=== PATIENT | male | born 1955 | race Caucasian/White ===

== ENCOUNTER 2017-09-18 10:43 | Inpatient (IN) | payer BC, SELFPAY ==
[2017-09-18 11:34] VITALS: BP 139/71; PULSE 67; RESP 16; TEMP 36.7; O2SAT 95; BMI 42.3
--- NOTE | 2017-09-18 11:40 | HMH.PHAVTE ---
[facility] Pharm[facility] VTE Monitoring - Patient Demographics Admission date: 09/18/17 Report Date: 09/18/17 Time: 11:40 Allergies/Adverse Reactions: Patient Allergies INGREDIENT: NO KNOWN - NO KNOWN DRUG ALLERGY Allergy (Unknown, Uncoded 07/21/17 14:32) Height: 1.85 m Weight: 145.32 kg - Prophylaxis VTE Prophylaxis Ordered?: Yes Types of VTE Prophylaxis: TEDS Knee High Location of Applied Device: Bilateral Lower Extremeties - VTE Diagnosis Confirmed Treatment or plan recommended: Continue Current Treatment
[2017-09-18 11:52] LABS: Basophils # 0.1 K/mm3 (0-0.2); Basophils % 0.3 % (0.1-2.0); Eosinophils % 0.3 % (0.1-12.0); Hematocrit 45.6 % (42.0-52.0); Hemoglobin 15.5 g/dL (14.1-18.0); Lymphocytes # 1.2 K/mm3 (0.7-4.5); Lymphocytes % 7.7 K/mm3 (10-50); Mean Corpuscular HGB Conc 33.9 g/dL (31.8-35.4); Mean Corpuscular Hemoglobin 29.1 pg (27.0-31.2); Mean Corpuscular Volume 85.9 fl (80-94); Mean Platelet Volume 7.8 fl (7.4-10.4); Monocytes # 0.7 K/mm3 (0.1-1.0); Monocytes % 4.8 % (1.7-9.3); Neutrophils # 13.1 K/mm3 (1.8-7.8); Neutrophils % 86.9 % (37.0-80.0); Platelet Count 205 K/mm3 (142-424); Red Blood Count 5.31 M/mm3 (4.60-6.20); Red Cell Distribution Width 13.5 % (11.5-17.5); White Blood Count 15.1 K/mm3 (4.8-10.8)
[2017-09-18 11:59] LABS: Alanine Aminotransferase 37 U/L (12-78); Albumin Level 3.7 gm/dL (3.4-5.0); Albumin/Globulin Ratio 1.1 (1.1-1.8); Alkaline Phosphatase 51 U/L (46-116); Anion Gap 12.4 mEq/L (5-15); Aspartate Amino Transferase 16 U/L (15-37); Bilirubin,Total 0.5 mg/dL (0.2-1.0); Blood Urea Nitrogen 27 mg/dL (7-18); Carbon Dioxide 29 mmol/L (21.0-32.0); Chloride 104 mmol/L (98-107); Creatinine Clearance Estimated 54 mL/min (0-300); Creatinine,Serum 1.63 mg/dL (0.70-1.30); Estimated Glomerular Filt Rate 43 ml/min (>60); GFR (African American) 52 ML/MIN (>60); Globulin 3.5 gm/dl (1.3-3.2); Glucose 154 mg/dL (74-106); Potassium 4.4 mmoL/L (3.5-5.1); Sodium 141 mmol/L (136-145); Total Protein,Serum 7.2 gm/dL (6.4-8.2)
[2017-09-18 12:00] LABS: MANUAL DIFFERENTIAL MANUAL DIFFERENTIAL (MANUAL DIFF)
--- NOTE | 2017-09-18 12:51 | HMH.HP ---
*Admission Date: 09/18/17 <Roxanne Hines 09/18/17 13:04> *Chief complaint: left flank pain <Roxanne Hines 09/18/17 13:04> *History of present illness: Mr. Cha is a 61yo male who was just recently treated for prostatitis and a UTI with cipro. He states he was doing better and last night around 4am, he began having severe left sided flank pain. He has been unable to get comfortably and has been on a heating pad. He presented to the office and had blood in his urine and a WBC of 16,000. A CT revealed a 4mm obstructing kidney stone. He was admitted for pain control, IVF's, and IV abx. <Roxanne Hines 09/18/17 13:04> [facility] History Medical History: Reports:: Diabetes Mellitus Type 2, Gastroesophageal Reflux Disease(GERD), Hypertension Denies:: Cancer, Diabetes Mellitus Type 1, MRSA <Roxanne Hines 09/18/17 13:04> Other Medical History: Reports: Arthritis <Roxanne Hines 09/18/17 13:04> Comment: Gout <Roxanne Hines 09/18/17 13:04> Other Surgeries: Yes: Appendectomy, Colonoscopy <Roxanne Hines 09/18/17 13:04> Amputation: No <Roxanne Hines 09/18/17 13:04> Fractures: No <Roxanne Hines 09/18/17 13:04> - *Social History Educational Level: Completed College <Roxanne Hines 09/18/17 13:04> Smoking Status: Never smoker <Roxanne Hines 09/18/17 13:04> Alcohol Intake: never <Roxanne Hines 09/18/17 13:04> Occupational Status: employed <Roxanne Hines 09/18/17 13:04> Housing: house <Roxanne Hines 09/18/17 13:04> - Psychiatric History Expresses thoughts of harming self/others: None <Roxanne Hines 09/18/17 13:04> Suicide Plan Description: No Plan <Roxanne Hines 09/18/17 13:04> *Family Hx:: Diabetes, Kidney Disease <Roxanne Hines 09/18/17 13:04> Review of Systems - Constitutional Reports fatigue, Reports weakness <Roxanne Hines 09/18/17 13:04> - Eyes Denies blurry vision, Denies double vision <Roxanne Hines 09/18/17 13:04> - ENT Denies nasal congestion, Denies sore throat <Roxanne Hines 09/18/17 13:04> - *Cardiovascular Denies chest pain <Roxanne Hines 09/18/17 13:04> - *Respiratory Denies cough, Denies shortness of breath <Roxanne Hines 09/18/17 13:04> - *Gastrointestinal Reports abdominal pain (LLQ), Reports nausea, Denies vomiting <Roxanne Hines 09/18/17 13:04> - *Genitourinary Reports difficulty urinating, Reports painful urination <Roxanne Hines 09/18/17 13:04> - *Musculoskeletal Reports back pain (left flank), Denies joint pain <Roxanne Hines 09/18/17 13:04> - *Neurologic Denies headache(s), Denies dizziness <Roxanne Hines 09/18/17 13:04> Meds Home Medications Medication Instructions Recorded Confirmed Type Allopurinol [Allopurinol 100mg 100 mg PO DAILY 09/18/17 09/18/17 History tablet] Losartan/Hydrochlorothiazide 1 each PO DAILY 09/18/17 09/18/17 History [Losartan-Hctz 50-12.5 mg Tab] Metformin HCl [Metformin 500mg 2,000 mg PO DAILY 09/18/17 09/18/17 History Tablet] Nabumetone [Nabumetone] 750 mg PO DAILY 09/18/17 09/18/17 History Pantoprazole Sodium [Protonix 40mg 40 mg PO DAILY 09/18/17 09/18/17 History tablet] <Gomez Lorenzana - 09/18/17 13:15> Allergies Allergy/AdvReac Type Severity Reaction Status Date / Time INGREDIENT: NO KNOWN - NO Allergy Unknown Uncoded 07/21/17 14:32 KNOWN DRUG ALLERGY <Gomez Lorenzana - 09/18/17 13:15> Exam Vital signs and Labs for Last 24 Hours: Temp Pulse Resp BP Pulse Ox 98.0 F 67 16 139/71 95 09/18/17 11:34 09/18/17 11:34 09/18/17 11:34 09/18/17 11:34 09/18/17 11:34 Laboratory Results - last 24 hr 09/18/17 11:40: WBC 15.1 H, RBC 5.31, Hgb 15.5, Hct 45.6, MCV 85.9, MCH 29.1, MCHC 33.9, RDW 13.5, Plt Count 205, MPV 7.8, Neut % (Auto) 86.9 H, Lymph % (Auto) 7.7 L, [place] % (Auto) 4.8, Eos % (Auto) 0.3, Baso % (Auto) 0.3, Neut # (Auto) 13.1 H, Lymph # (Auto) 1.2, [place] # (Auto) 0.7, Eos # (Auto) 0.0, Baso # (Auto) 0.1, Total Counted
--- NOTE | 2017-09-18 12:55 | P.HP_ITS ---
*Admission Date: 09/18/17 <Roxanne Hines 09/18/17 13:04> *Chief complaint: left flank pain <Roxanne Hines 09/18/17 13:04> *History of present illness: Mr. Cha is a 61yo male who was just recently treated for prostatitis and a UTI with cipro. He states he was doing better and last night around 4am, he began having severe left sided flank pain. He has been unable to get comfortably and has been on a heating pad. He presented to the office and had blood in his urine and a WBC of 16,000. A CT revealed a 4mm obstructing kidney stone. He was admitted for pain control, IVF's, and IV abx. <Roxanne Hines 09/18/17 13:04> [facility] History Medical History: Reports:: Diabetes Mellitus Type 2, Gastroesophageal Reflux Disease(GERD), Hypertension Denies:: Cancer, Diabetes Mellitus Type 1, MRSA <Roxanne Hines 09/18/17 13:04> Other Medical History: Reports: Arthritis <Roxanne Hines 09/18/17 13:04> Comment: Gout <Roxanne Hines 09/18/17 13:04> Other Surgeries: Yes: Appendectomy, Colonoscopy <Roxanne Hines 09/18/17 13: 04> Amputation: No <Roxanne Hines 09/18/17 13:04> Fractures: No <Roxanne Hines 09/18/17 13:04> - *Social History Educational Level: Completed College <Roxanne Hines 09/18/17 13:04> Smoking Status: Never smoker <Roxanne Hines 09/18/17 13:04> Alcohol Intake: never <Roxanne Hines 09/18/17 13:04> Occupational Status: employed <Roxanne Hines 09/18/17 13:04> Housing: house <Roxanne Hines 09/18/17 13:04> - Psychiatric History Expresses thoughts of harming self/others: None <Roxanne Hines 09/18/17 13: 04> Suicide Plan Description: No Plan <Roxanne Hines 09/18/17 13:04> *Family Hx:: Diabetes, Kidney Disease <Roxanne Hines 09/18/17 13:04> Review of Systems - Constitutional Reports fatigue, Reports weakness <Roxanne Hines 09/18/17 13:04> - Eyes Denies blurry vision, Denies double vision <Roxanne Hines 09/18/17 13:04> - ENT Denies nasal congestion, Denies sore throat <Roxanne Hines 09/18/17 13:04> - *Cardiovascular Denies chest pain <Roxanne Hines 09/18/17 13:04> - *Respiratory Denies cough, Denies shortness of breath <Roxanne Hines 09/18/17 13:04> - *Gastrointestinal Reports abdominal pain (LLQ), Reports nausea, Denies vomiting <Roxanne Hines 09/18/17 13:04> - *Genitourinary Reports difficulty urinating, Reports painful urination <Roxanne Hines 09/18 13:04> - *Musculoskeletal Reports back pain (left flank), Denies joint pain <Roxanne Hines 09/18/17 13 :04> - *Neurologic Denies headache(s), Denies dizziness <Roxanne Hines 09/18/17 13:04> Meds Home Medications Medication Instructions Recorded Confirmed Type Allopurinol [Allopurinol 100mg 100 mg PO DAILY 09/18/17 09/18/17 History tablet] Losartan/Hydrochlorothiazide 1 each PO DAILY 09/18/17 09/18/17 History [Losartan-Hctz 50-12.5 mg Tab] Metformin HCl [Metformin 500mg 2,000 mg PO DAILY 09/18/17 09/18/17 History Tablet] Nabumetone [Nabumetone] 750 mg PO DAILY 09/18/17 09/18/17 History Pantoprazole Sodium [Protonix 40mg 40 mg PO DAILY 09/18/17 09/18/17 History tablet] <Gomez Lorenzana - 09/18/17 13:15> Allergies Allergy/AdvReac Type Severity Reaction Status Date / Time INGREDIENT: NO KNOWN - NO Allergy Unknown Uncoded 07/21/17 14:32 KNOWN DRUG ALLERGY <Gomez Lorenzana - 09/18/17 13:15> Exam Vital signs and Labs for Last 24 Hours:
[2017-09-18 12:57] LABS: Lymphocytes % 4 % (10-50); Monocytes % 2 % (2-9); Neutrophils % 94 % (42-76); Platelet Estimate Normal; RBC Morphology Normal; Total Cells Counted 100
[2017-09-18 15:06] VITALS: RESP 18
[2017-09-18 16:00] VITALS: BP 136/71; PULSE 78; RESP 16; TEMP 37; O2SAT 95
--- NOTE | 2017-09-18 18:27 | PC.NURSE ---
UA WAS COLLECTED AND SENT TO LAB, PATIENT HAS VOIDED TWICE AND STRAINED AND NOTHING IN THE STRAINER.
--- NOTE | 2017-09-18 18:43 | PC.NURSE ---
PATIENT HAS BEEN ADMITTED WITH KIDNEY STONES TODAY, HE HAS VOIDED TWICE AND STRAINED AND NO STONES WERE NOTED. UA WAS COLLECTED AND SENT TO LAB. IVF'S INFUSING AT 150ML/HR . PATIENT HAS HAD ONE DOSE OF ROCHEPHIN 1GM AND 2 DOSES OF MORPHINE FOR PAIN AND PAIN IS TOLERABLE AND UNDER CONTROL AT THIS TIME.
[2017-09-18 19:30] VITALS: BP 118/64; PULSE 88; RESP 16; TEMP 36.9; O2SAT 94
[2017-09-18 19:55] VITALS: O2SAT 94
[2017-09-19 04:00] VITALS: BP 121/70; PULSE 77; RESP 18; TEMP 36.6; O2SAT 97
--- NOTE | 2017-09-19 04:54 | PC.NURSE ---
no changes noted since previous assessment, pt c/o pain once this shift which was relieved by PRN medication per MAR, pt has rested well this shift, breath sounds clear on auscultation, bowel sounds active, pt denies pain and frequency with urination, vss, no acute distress noted at this time, call light in reach, will continue to monitor.
[2017-09-19 08:00] VITALS: BP 117/63; PULSE 69; RESP 16; TEMP 36.8; O2SAT 96
--- NOTE | 2017-09-19 08:58 | P.PN_ITS ---
Internal Medicine - PN: Subj *Date: 09/19/17 *Time: 08:56 Interval history: Patient with no new complaints, less pain today, receiving Morphine for pain, has not passed a stone yet. Exam Vital signs and Labs for Last 24 Hours: Temp Pulse Resp BP Pulse Ox 98.3 F 69 16 117/63 96 09/19/17 08:00 09/19/17 08:00 09/19/17 08:00 09/19/17 08:00 09/19/17 08:00 Laboratory Results - last 24 hr 09/18/17 11:40: WBC 15.1 H, RBC 5.31, Hgb 15.5, Hct 45.6, MCV 85.9, MCH 29.1, MCHC 33.9, RDW 13.5, Plt Count 205, MPV 7.8, Neut % (Auto) 86.9 H, Lymph % (Auto ) 7.7 L, [place] % (Auto) 4.8, Eos % (Auto) 0.3, Baso % (Auto) 0.3, Neut # (Auto) 13.1 H, Lymph # (Auto) 1.2, [place] # (Auto) 0.7, Eos # (Auto) 0.0, Baso # (Auto) 0.1, Total Counted 100, Neutrophils % (Manual) 94 H, Lymphocytes % (Manual) 4 L , Monocytes % (Manual) 2, Platelet Estimate Normal, RBC Morphology Normal 09/18/17 11:40: Sodium 141, Potassium 4.4, Chloride 104, Carbon Dioxide 29, Anion Gap 12.4, BUN 27 H, Creatinine 1.63 H, Estimated Creat Clear 54, Estimated GFR 43 L, Est GFR ( Amer) 52 L, Glucose 154 H, Calcium 9.0, Total Bilirubin 0.5, AST 16, ALT 37, Alkaline Phosphatase 51, Total Protein 7.2 , Albumin 3.7, Globulin 3.5 H, Albumin/Globulin Ratio 1.1 I & O for Last 24 hours: Intake & Output 09/16/17 09/17/17 09/18/17 09/19/17 11:59 11:59 11:59 11:59 Intake Total 2696 / 2696 Output Total 1900 / 1900 Balance 796 / 796 Weight 320 lb 6 oz - Constitutional no acute distress - *Routine HEENT Exam ENT: Present: mucous membranes moist - *Routine Respiratory Exam Present: CTA bilaterally - *Routine Cardiovascular Exam Present: RRR Assessment and Plan (1) Kidney stone on left side Current visit: Yes Status: Acute Category: Medical Code(s): N20.0 - Calculus of kidney (2) Leukocytosis Current visit: Yes Status: Acute Category: Medical Code(s): D72.829 - Elevated white blood cell count, unspecified (3) Type 2 diabetes mellitus Current visit: Yes Status: Chronic Category: Medical Code(s): E11.9 - Type 2 diabetes mellitus without complications (4) Hypertension Current visit: Yes Status: Chronic Category: Medical Code(s): I10 - Essential (primary) hypertension (5) GERD (gastroesophageal reflux disease) Current visit: Yes Status: Chronic Category: Medical Code(s): K21.9 - Gastro-esophageal reflux disease without esophagitis - Assessment and plan all Dx Assessment and Plan for all problems:: Will add Flomax today, continue to strain urine. Recheck labs tomorrow.
[2017-09-19 16:00] VITALS: BP 113/53; PULSE 76; RESP 18; TEMP 36.6; O2SAT 97
--- NOTE | 2017-09-19 18:37 | PC.NURSE ---
no changes from previous assessment. v/s/s. iv patent. no c/o of pain this shift. urine has been strained with no results. pt ambulates independently. call light in reach. will continue to monitor pt condition.
--- NOTE | 2017-09-19 19:21 | PC.NURSE ---
report given to Blanca medellin rn
[2017-09-19 19:29] VITALS: BP 125/67; PULSE 71; RESP 18; TEMP 36.8; O2SAT 97
[2017-09-19 20:30] VITALS: O2SAT 97
[2017-09-20 03:28] LABS: POC Glucose,Bedside 95 mg/dL (70-110)
[2017-09-20 03:31] LABS: POC Glucose,Bedside 96 mg/dL (70-110)
[2017-09-20 04:00] VITALS: BP 141/68; PULSE 58; RESP 20; TEMP 36.6; O2SAT 96
--- NOTE | 2017-09-20 04:48 | PC.NURSE ---
Pt c/o pain in lower back once this shift, medicated per MAR. Pt having adequete UOP, urine continues to be strained but no stone noted, pt states It feels like I havent passed it yet. Pt uses KPAP to lower back PRN. BS active in all 4 qaud, LBM 09/19/17. Scattered rhonchi noted during lung auscultation. VSS. NO acute distress noted. Will continue to monitor.
[2017-09-20 06:40] LABS: Basophils % 0.4 % (0.1-2.0); Eosinophils # 0.1 K/mm3 (0.0-0.4); Eosinophils % 1.7 % (0.1-12.0); Hematocrit 40.6 % (42.0-52.0); Hemoglobin 13.7 g/dL (14.1-18.0); Lymphocytes # 1.8 K/mm3 (0.7-4.5); Lymphocytes % 25.1 K/mm3 (10-50); Mean Corpuscular HGB Conc 33.7 g/dL (31.8-35.4); Mean Corpuscular Volume 86.1 fl (80-94); Mean Platelet Volume 8.1 fl (7.4-10.4); Monocytes # 0.5 K/mm3 (0.1-1.0); Monocytes % 6.8 % (1.7-9.3); Neutrophils # 4.8 K/mm3 (1.8-7.8); Platelet Count 175 K/mm3 (142-424); Red Blood Count 4.72 M/mm3 (4.60-6.20); Red Cell Distribution Width 13.5 % (11.5-17.5); White Blood Count 7.2 K/mm3 (4.8-10.8)
[2017-09-20 06:46] LABS: Blood Urea Nitrogen 25 mg/dL (7-18); Carbon Dioxide 26 mmol/L (21.0-32.0); Chloride 107 mmol/L (98-107); Creatinine Clearance Estimated 49 mL/min (0-300); Creatinine,Serum 1.78 mg/dL (0.70-1.30); Estimated Glomerular Filt Rate 39 ml/min (>60); GFR (African American) 47 ML/MIN (>60); Glucose 128 mg/dL (74-106); Sodium 139 mmol/L (136-145)
--- NOTE | 2017-09-20 07:09 | PC.NURSE ---
REPORT GIVEN TO Delmar LA RN
--- NOTE | 2017-09-20 07:12 | PC.NURSE ---
REPORT GIVEN TO Delmar NEWTON W/C
[2017-09-20 07:54] VITALS: BP 124/80; PULSE 70; RESP 16; TEMP 36.9; O2SAT 97
--- NOTE | 2017-09-20 08:58 | HMH.ACPN2 ---
Internal Medicine - PN: Subj *Date: 09/20/17 *Time: 08:58 Interval history: Patient feels better today, has not passed a stone yet, wants to go home. Exam Vital signs and Labs for Last 24 Hours: Temp Pulse Resp BP Pulse Ox 98.4 F 70 16 124/80 97 09/20/17 07:54 09/20/17 07:54 09/20/17 07:54 09/20/17 07:54 09/20/17 07:54 Laboratory Results - last 24 hr 09/19/17 11:32: POC Glucose 95 09/19/17 20:06: POC Glucose 96 09/20/17 06:00: WBC 7.2 D, RBC 4.72, Hgb 13.7 L, Hct 40.6 L, MCV 86.1, MCH 29.0, MCHC 33.7, RDW 13.5, Plt Count 175, MPV 8.1, Neut % (Auto) 66.0, Lymph % (Auto) 25.1, [place] % (Auto) 6.8, Eos % (Auto) 1.7, Baso % (Auto) 0.4, Neut # (Auto) 4.8, Lymph # (Auto) 1.8, [place] # (Auto) 0.5, Eos # (Auto) 0.1, Baso # (Auto) 0.0 09/20/17 06:00: Sodium 139, Potassium 4.0, Chloride 107, Carbon Dioxide 26, Anion Gap 10.0, BUN 25 H, Creatinine 1.78 H, Estimated Creat Clear 49, Estimated GFR 39 L, Est GFR ( Amer) 47 L, Glucose 128 H Vital Signs Temp Pulse Resp BP Pulse Ox 09/20/17 07:54 98.4 F 70 16 124/80 97 09/20/17 04:00 97.9 F 58 L 20 141/68 96 09/19/17 20:30 97 09/19/17 19:29 98.2 F 71 18 125/67 97 09/19/17 16:00 97.8 F 76 18 113/53 97 Intake and Output 09/19/17 09/20/17 09/20/17 19:59 03:59 11:59 Intake Total 2742 / 2742 480 / 480 1592 / 1592 Output Total 1250 / 1250 900 / 900 1350 / 1350 Balance 1492 / 1492 -420 / -420 242 / 242 Intake: Intake, Oral Amount 750 / 750 480 / 480 Intake, Total IV Amount 1991 1592 / 1592 0.9 % Sodium Chloride 1,000 ml 1941 / 1941 1592 / 1592 @ 150 mls/hr IV .Q6H40M ALEJANDRA Rx# :[id number] Ceftriaxone Sodium 1 gm In 0.9 50 / 50 % Sodium Chloride 50 ml @ 100 mls/hr IV Q24H ALEJANDRA Rx#:[id number] Output: Output, Urine Amount 1250 / 1250 900 / 900 1350 / 1350 Other: Number of Voids 2 1 Number of Unmeasured Voids 5 I & O for Last 24 hours: Intake & Output 09/17/17 09/18/17 09/19/17 09/20/17 11:59 11:59 11:59 11:59 Intake Total 2696 / 2696 4814 / 4814 Output Total 1900 / 1900 3500 / 3500 Balance 796 / 796 1314 / 1314 Weight 320 lb 6 oz Microbiology Reports for the Last 24 Hours: Microbiology 09/18/17 18:23 Urine,Random Urine Culture - Preliminary NO GROWTH AFTER 24 HOURS - Constitutional no acute distress - *Routine HEENT Exam ENT: Present: mucous membranes moist - *Routine Respiratory Exam Present: CTA bilaterally - *Routine Cardiovascular Exam Present: RRR - Routine Back/Spine/Pelvis Exam Back/Spine: Absent: CVA tenderness Assessment and Plan (1) Kidney stone on left side Current visit: Yes Status: Acute Category: Medical Code(s): N20.0 - Calculus of kidney (2) Leukocytosis Current visit: Yes Status: Acute Category: Medical Code(s): D72.829 - Elevated white blood cell count, unspecified (3) Type 2 diabetes mellitus Current visit: Yes Status: Chronic Category: Medical Code(s): E11.9 - Type 2 diabetes mellitus without complications (4) Hypertension Current visit: Yes Status: Chronic Category: Medical Code(s): I10 - Essential (primary) hypertension (5) GERD (gastroesophageal reflux disease) Current visit: Yes Status: Chronic Category: Medical Code(s): K21.9 - Gastro-esophageal reflux disease without esophagitis - Assessment and plan all Dx Assessment and Plan for all problems:: OK to discharge today, will continue to strain urine and pain medication as needed and antibiotics as it appears patient has a UTI. Patient to follow up by phone in 2 days and in office in 2 weeks.
--- NOTE | 2017-09-20 09:02 | P.PN_ITS ---
Internal Medicine - PN: Subj *Date: 09/20/17 *Time: 08:58 Interval history: Patient feels better today, has not passed a stone yet, wants to go home. Exam Vital signs and Labs for Last 24 Hours: Temp Pulse Resp BP Pulse Ox 98.4 F 70 16 124/80 97 09/20/17 07:54 09/20/17 07:54 09/20/17 07:54 09/20/17 07:54 09/20/17 07:54 Laboratory Results - last 24 hr 09/19/17 11:32: POC Glucose 95 09/19/17 20:06: POC Glucose 96 09/20/17 06:00: WBC 7.2 D, RBC 4.72, Hgb 13.7 L, Hct 40.6 L, MCV 86.1, MCH 29.0 , MCHC 33.7, RDW 13.5, Plt Count 175, MPV 8.1, Neut % (Auto) 66.0, Lymph % (Auto ) 25.1, [place] % (Auto) 6.8, Eos % (Auto) 1.7, Baso % (Auto) 0.4, Neut # (Auto) 4.8, Lymph # (Auto) 1.8, [place] # (Auto) 0.5, Eos # (Auto) 0.1, Baso # (Auto) 0.0 09/20/17 06:00: Sodium 139, Potassium 4.0, Chloride 107, Carbon Dioxide 26, Anion Gap 10.0, BUN 25 H, Creatinine 1.78 H, Estimated Creat Clear 49, Estimated GFR 39 L, Est GFR ( Amer) 47 L, Glucose 128 H Vital Signs Temp Pulse Resp BP Pulse Ox 09/20/17 07:54 98.4 F 70 16 124/80 97 09/20/17 04:00 97.9 F 58 L 20 141/68 96 09/19/17 20:30 97 09/19/17 19:29 98.2 F 71 18 125/67 97 09/19/17 16:00 97.8 F 76 18 113/53 97 Intake and Output 09/19/17 09/20/17 09/20/17 19:59 03:59 11:59 Intake Total 2742 / 2742 480 / 480 1592 / 1592 Output Total 1250 / 1250 900 / 900 1350 / 1350 Balance 1492 / 1492 -420 / -420 242 / 242 Intake: Intake, Oral Amount 750 / 750 480 / 480 Intake, Total IV Amount 1991 1592 / 1592 0.9 % Sodium Chloride 1,000 ml 194 / 1941 1592 / 1592 @ 150 mls/hr IV .Q6H40M ALEJANDRA Rx# :[id number] Ceftriaxone Sodium 1 gm In 0.9 50 / 50 % Sodium Chloride 50 ml @ 100 mls/hr IV Q24H ALEJANDRA Rx#:[id number] Output: Output, Urine Amount 1250 / 1250 900 / 900 1350 / 1350 Other: Number of Voids 2 1 Number of Unmeasured Voids 5 I & O for Last 24 hours: Intake & Output 09/17/17 09/18/17 09/19/17 09/20/17 11:59 11:59 11:59 11:59 Intake Total 2696 / 2696 4814 / 4814 Output Total 1900 / 1900 3500 / 3500 Balance 796 / 796 1314 / 1314 Weight 320 lb 6 oz Microbiology Reports for the Last 24 Hours: Microbiology 09/18/17 18:23 Urine,Random Urine Culture - Preliminary NO GROWTH AFTER 24 HOURS - Constitutional no acute distress - *Routine HEENT Exam ENT: Present: mucous membranes moist - *Routine Respiratory Exam Present: CTA bilaterally - *Routine Cardiovascular Exam Present: RRR - Routine Back/Spine/Pelvis Exam Back/Spine: Absent: CVA tenderness Assessment and Plan (1) Kidney stone on left side Current visit: Yes Status: Acute Category: Medical Code(s): N20.0 - Calculus of kidney (2) Leukocytosis Current visit: Yes Status: Acute Category: Medical Code(s): D72.829 - Elevated white blood cell count, unspecified (3) Type 2 diabetes mellitus Current visit: Yes Status: Chronic Category: Medical Code(s): E11.9 - Type 2 diabetes mellitus without complications (4) Hypertension Current visit: Yes Status: Chronic Category: Medical Code(s): I10 - Essential (primary) hypertension (5)
--- NOTE | 2017-09-21 12:51 | HMH.DCSUM ---
General - General Admission date: 09/18/17 Discharge date: 09/20/17 HPI HPI: Mr. Cha is a 61yo male who was just recently treated for prostatitis and a UTI with cipro. He states he was doing better and last night around 4am, he began having severe left sided flank pain. He has been unable to get comfortable and has been on a heating pad. He presented to the office and had blood in his urine and a WBC of 16,000. A CT revealed a 4mm obstructing kidney stone. He was admitted for pain control, IVF's, and IV abx. Objective Vital signs: Temp Pulse Resp BP Pulse Ox 98.4 F 70 16 124/80 97 09/20/17 07:54 09/20/17 07:54 09/20/17 07:54 09/20/17 07:54 09/20/17 07:54 Narrative: - Constitutional Comments: Appears to be in pain - *Routine HEENT Exam Head: Present: normocephalic, atraumatic Eye: Present: PERRL ENT: Present: mucous membranes moist - *Routine Neck Exam Present: supple, full ROM - *Routine Respiratory Exam Present: CTA bilaterally - *Routine Cardiovascular Exam Present: RRR - *Routine Abdominal Exam Present: soft, normoactive bowel sounds, tenderness (LLQ) - *Routine Extremities Exam Present: edema - Routine Back/Spine/Pelvis Exam Back/Spine: Present: CVA tenderness (left) - *Routine Skin Exam Present: intact - *Routine Neurological Exam Present: alert, oriented X3 Hospital Course Hospital Course: Flomax was added and the patient strained his urine. He did begin feeling better but did not pass the stone. He wanted to go home and was stable to be discharged. He will continue to strain his urine and take pain medication as needed. He will also be discharged on antibiotics as it appears he has a UTI. Patient to follow up by phone in 2 days and in the office in 2 weeks. DS: Diagnosis - Discharge Diagnosis (1) Kidney stone on left side Status: Acute (2) Leukocytosis Status: Acute (3) Type 2 diabetes mellitus Status: Chronic (4) Hypertension Status: Chronic (5) GERD (gastroesophageal reflux disease) Status: Chronic Discharge Plan - Patient Discharge Instructions ACTIVITY: Continue current activity DIET: continue same diet Additional Instructions: Strain urine, call office with progress report in 2 days. Patient Instructions: DI for Kidney Stones - Follow up Plan Follow up with: Gomez Lorenzana MD [Staff Physician] - 10/02/17 Disposition: Home, Self-Intermediate Medications: Home Medications Medication Instructions Recorded Confirmed Type Allopurinol [Allopurinol 100mg 300 mg PO DAILY 09/18/17 09/18/17 History tablet] Losartan/Hydrochlorothiazide 1 each PO DAILY 09/18/17 09/18/17 History [Losartan-Hctz 50-12.5 mg Tab] Metformin HCl [Metformin 500mg 2,000 mg PO DAILY 09/18/17 09/18/17 History Tablet] Pantoprazole Sodium [Protonix 40mg 40 mg PO DAILY 09/18/17 09/18/17 History tablet] Prescriptions/Medication Reconciliation: New Hydrocod/Acet 5/325 mg [[place] 5/325mg tablet] 1 - 2 tab PO Q6HP PRN #20 tab PRN Reason: Severe Pain cefUROXime axetil [Cefuroxime 500mg Tab] 500 mg PO BID #14 tab Tamsulosin HCl [Flomax 0.4mg capsule] 0.4 mg PO DAILY #30 cap.er.24h Continue Metformin HCl [Metformin 500mg Tablet] 2,000 mg PO DAILY Losartan/Hydrochlorothiazide [Losartan-Hctz 50-12.5 mg Tab] 1 each PO DAILY Allopurinol [Allopurinol 100mg tablet] 300 mg PO DAILY Pantoprazole Sodium [Protonix 40mg tablet] 40 mg PO DAILY Discontinued Nabumetone [Nabumetone] 1,500 mg PO DAILY
--- NOTE | 2017-09-21 12:56 | P.DS_ITS ---
General - General Admission date: 09/18/17 Discharge date: 09/20/17 HPI HPI: Mr. Cha is a 61yo male who was just recently treated for prostatitis and a UTI with cipro. He states he was doing better and last night around 4am, he began having severe left sided flank pain. He has been unable to get comfortable and has been on a heating pad. He presented to the office and had blood in his urine and a WBC of 16,000. A CT revealed a 4mm obstructing kidney stone. He was admitted for pain control, IVF's, and IV abx. Objective Vital signs: Temp Pulse Resp BP Pulse Ox 98.4 F 70 16 124/80 97 09/20/17 07:54 09/20/17 07:54 09/20/17 07:54 09/20/17 07:54 09/20/17 07:54 Narrative: - Constitutional Comments: Appears to be in pain - *Routine HEENT Exam Head: Present: normocephalic, atraumatic Eye: Present: PERRL ENT: Present: mucous membranes moist - *Routine Neck Exam Present: supple, full ROM - *Routine Respiratory Exam Present: CTA bilaterally - *Routine Cardiovascular Exam Present: RRR - *Routine Abdominal Exam Present: soft, normoactive bowel sounds, tenderness (LLQ) - *Routine Extremities Exam Present: edema - Routine Back/Spine/Pelvis Exam Back/Spine: Present: CVA tenderness (left) - *Routine Skin Exam Present: intact - *Routine Neurological Exam Present: alert, oriented X3 Hospital Course Hospital Course: Flomax was added and the patient strained his urine. He did begin feeling better but did not pass the stone. He wanted to go home and was stable to be discharged. He will continue to strain his urine and take pain medication as needed. He will also be discharged on antibiotics as it appears he has a UTI. Patient to follow up by phone in 2 days and in the office in 2 weeks. DS: Diagnosis - Discharge Diagnosis (1) Kidney stone on left side Status: Acute (2) Leukocytosis Status: Acute (3) Type 2 diabetes mellitus Status: Chronic (4) Hypertension Status: Chronic (5) GERD (gastroesophageal reflux disease) Status: Chronic Discharge Plan - Patient Discharge Instructions ACTIVITY: Continue current activity DIET: continue same diet Additional Instructions: Strain urine, call office with progress report in 2 days. Patient Instructions: DI for Kidney Stones - Follow up Plan Follow up with: Gomez Lorenzana MD [Staff Physician] - 10/02/17 Disposition: Home, Self-Fpc Medications: Home Medications Medication Instructions Recorded Confirmed Type Allopurinol [Allopurinol 100mg 300 mg PO DAILY 09/18/17 09/18/17 History tablet] Losartan/Hydrochlorothiazide 1 each PO DAILY 09/18/17 09/18/17 History [Losartan-Hctz 50-12.5 mg Tab] Metformin HCl [Metformin 500mg 2,000 mg PO DAILY 09/18/17 09/18/17 History Tablet] Pantoprazole Sodium [Protonix 40mg 40 mg PO DAILY 09/18/17 09/18/17 History tablet] Prescriptions/Medication Reconciliation: New Hydrocod/Acet 5/325 mg [[place] 5/325mg tablet] 1 - 2 tab PO Q6HP PRN #20 tab PRN Reason: Severe Pain cefUROXime axetil [Cefuroxime 500mg Tab] 500 mg PO BID #14 tab Tamsulosin HCl [Flomax 0.4mg capsule] 0.4 mg PO DAILY #30 cap.er.24h Continue Metformin HCl [Metformin 500mg Tablet] 2,000 mg PO DAILY Losartan/Hydrochlorothi
[2017-10-01 14:56] LABS: POC Glucose,Bedside 129 mg/dL (70-110)
[2017-10-01 14:56] LABS: POC Glucose,Bedside 135 mg/dL (70-110)
[2017-10-01 14:56] LABS: POC Glucose,Bedside 137 mg/dL (70-110)
[2017-10-01 14:57] LABS: POC Glucose,Bedside 120 mg/dL (70-110)
[2017-10-01 14:58] LABS: POC Glucose,Bedside 118 mg/dL (70-110)
== END 2017-09-20 09:41 | disposition home or self-care (01) | DRG 694 ==
PROVIDERS: Physician Assistant; Admitting Provider Family Medicine; Visit Provider Family Medicine
DX: N20.0 Calculus of kidney (principal); E11.9 Type 2 diabetes mellitus without complications; N39.0 Urinary tract infection, site not specified; I10 Essential (primary) hypertension
CPT/HCPCS: 36415; 74176; 80048; 80053; 82962; 85007; 85025; 87086; J2270; J2405

== ENCOUNTER → 2017-09-22 13:02 | Outpatient (CLI) | payer BC, SELFPAY ==
--- NOTE | 2017-09-22 13:07 | XR_ITS ---
XR KUB CLINICAL INDICATION: Left ureterolithiasis ITS.REASON: KIDNEY STONE ORDERING PHYSICIAN: Kristopher Yepez MD PATIENT AGE: 61 years COMPARISON: CT scan of 09/18/2017 FINDINGS: There is a 2 mm stone in the upper pole the right kidney. Previously there was a left mid ureteral calculus. There is a 3 mm calcific density in the left pelvic region which could be due to a distal ureteral stone. Previously the ureteral calculus is in the mid ureter area. There are no previous KUBs available for comparison. There is mild sclerosis of SI joints. IMPRESSION: Right nephrolithiasis. Previously noted left mid ureteral stone now appears to be at the distal aspect of the left ureter.
== END ==
PROVIDERS: PCP Family Medicine; Visit Provider Urology
DX: N20.0 Calculus of kidney (principal)
CPT/HCPCS: 74018

== ENCOUNTER 2017-10-19 09:11 | Day surgery (SDC) | payer BC, SELFPAY ==
[2017-10-13 13:02] VITALS: BMI 42.2
[2017-10-19] VITALS (7 sets, daily range): BP systolic 92–126; BP diastolic 59–78; PULSE 56–70; RESP 18–20; TEMP 36.6–36.8; O2SAT 93–99
[2017-10-19 09:44] LABS: POC Glucose,Bedside 117 mg/dL (70-110)
--- NOTE | 2017-10-19 09:49 | P.PN_ITS ---
[facility] Anesthesia Checklist - Patient Identification Patient Identification: Arm Band, Verbal (Name & ) - Structural Data Admitted From: Home Planned Operative Procedure/s: colonoscopy Consent for Planned Operative Procedure(s) Verified: Yes Verified Documents: Surgical Consent, History and Physical - NPO Status Verified Time NPO: 00:00 - Chart Verification Results Verified: CBC, BMP - Additional verifications Patient : No Anesthesia Reactions: No Hx Blood Transfusions: No Blood Transfusion Reaction: No Cephalosporin Allergy: No Previous Colonoscopy: No - Cardiovascular Assessment Heart Sounds: S1 & S2 Pulse Strength: Baseline Pulse Rhythm: Regular Peripheral Edema: No - Airway Assessment C-Spine Mobility Assessed: Yes TMJ Mobility Assessed: Yes Dentition: Partials - Neurological Assessment Level of Consciousness: Awake, Alert, Appropriate Hx Seizures: No Numbness or tingling in extremities: No - Anesthesia Plan Anesthesia Plan: Verified ASA Class: II Anesthesia Type: MAC [facility] Anesthesia HX I have reviewed the patient's past medical history: Yes Medical History: Reports:: Diabetes Mellitus Type 2, Gastroesophageal Reflux Disease(GERD), Hypertension Denies:: Cancer, Diabetes Mellitus Type 1, Internal Pacemaker, Lung Disease, MRSA, Seizures Other Medical History: Reports: Arthritis Other Surgeries: Yes: Appendectomy, Colonoscopy. No: Pacemaker Amputation: No Fractures: No *Family Hx:: Diabetes, Kidney Disease
--- NOTE | 2017-10-19 11:08 | HMH.PROC ---
[facility] Procedure Note Procedure Note:: Colonoscopy Procedure Report: Colonoscopy with cold snare polypectomy Endoscopist: Jake Hallman II, MD Referring physician: Gomez Lorenzana MD Date of Procedure: October 19, 2017 Equipment: Olympus 180 variable stiffness pediatric colonoscope Sedation: MAC sedation Indication: Mr. Cha is a 62-year-old gentleman who is here for follow-up screening/surveillance colonoscopy. He did have a colonoscopy 12 years ago ([facility] [place]) and had a couple of polyps removed. He reports no abdominal pain, weight loss, change in his bowel habits or rectal bleeding. He reports no family history of colon cancer. Procedure: Prior to the procedure, a history and physical exam was performed, and patient's medications and allergies were reviewed. The risks, benefits and alternatives of the sedation and procedure were discussed with the patient. All questions were answered and informed consent was obtained. The patient was brought to the procedure room. Patient identification and proposed procedure were verified by the physician and the nurse. The patient was placed in a left lateral decubitus position and the scope was passed under direct vision. Throughout the procedure, the patient's blood pressure, pulse, and oxygen saturations were monitored continuously. The colonoscopy was accomplished without difficulty. The patient tolerated the procedure well. Findings: On digital rectal examination there was normal rectal tone. There were no external hemorrhoids. The prostate was 2+, moderately soft and symmetric but there was some very mild firmness in the left upper lobe along the margin of the prostate. The colonoscope was introduced through the anal canal to the rectum and advanced to the cecum. The ileocecal valve and appendiceal orifice were identified. The scope was advanced a short distance into the ileum which appeared grossly normal. The scope was then withdrawn into the colon. There were 5 colon polyps identified in the cecum ?1, ascending ?1, descending ?2 and sigmoid ?1. These were placed into formalin jars labeled cecum and sigmoid. These ranged in size from 4-7 mm and were all removed via cold snare polypectomy. The remaining cecum, ascending, transverse, descending, sigmoid and rectum were grossly normal. There were no other mucosal abnormalities identified. Upon retroflexion within the rectum there were grade 1 internal hemorrhoids. Impression: 1. Colonic polyps ?5 2. Grade 1 internal hemorrhoids 3. Possible early prostate nodule left upper margin Plan: I will follow up the polyp pathology and recommend repeat colonoscopy again in 3 years based upon the polyp histology. I would check PSA annually and if this does increase, would refer to urology. I would encourage fiber supplementation on a long-term daily maintenance basis.
--- NOTE | 2017-10-19 11:11 | P.PCN_ITS ---
[facility] Procedure Note Procedure Note:: Colonoscopy Procedure Report: Colonoscopy with cold snare polypectomy Endoscopist: Jake Hallman II, MD Referring physician: Gomez Lorenzana MD Date of Procedure: October 19, 2017 Equipment: Olympus 180 variable stiffness pediatric colonoscope Sedation: MAC sedation Indication: Mr. Cha is a 62-year-old gentleman who is here for follow-up screening/surveillance colonoscopy. He did have a colonoscopy 12 years ago ( [facility] [place]) and had a couple of polyps removed. He reports no abdominal pain, weight loss, change in his bowel habits or rectal bleeding. He reports no family history of colon cancer. Procedure: Prior to the procedure, a history and physical exam was performed, and patient' s medications and allergies were reviewed. The risks, benefits and alternatives of the sedation and procedure were discussed with the patient. All questions were answered and informed consent was obtained. The patient was brought to the procedure room. Patient identification and proposed procedure were verified by the physician and the nurse. The patient was placed in a left lateral decubitus position and the scope was passed under direct vision. Throughout the procedure, the patient's blood pressure, pulse, and oxygen saturations were monitored continuously. The colonoscopy was accomplished without difficulty. The patient tolerated the procedure well. Findings: On digital rectal examination there was normal rectal tone. There were no external hemorrhoids. The prostate was 2+, moderately soft and symmetric but there was some very mild firmness in the left upper lobe along the margin of the prostate. The colonoscope was introduced through the anal canal to the rectum and advanced to the cecum. The ileocecal valve and appendiceal orifice were identified. The scope was advanced a short distance into the ileum which appeared grossly normal. The scope was then withdrawn into the colon. There were 5 colon polyps identified in the cecum ?1, ascending ?1, descending ?2 and sigmoid ?1. These were placed into formalin jars labeled cecum and sigmoid. These ranged in size from 4-7 mm and were all removed via cold snare polypectomy. The remaining cecum, ascending, transverse, descending, sigmoid and rectum were grossly normal. There were no other mucosal abnormalities identified. Upon retroflexion within the rectum there were grade 1 internal hemorrhoids. Impression: 1. Colonic polyps ?5 2. Grade 1 internal hemorrhoids 3. Possible early prostate nodule left upper margin Plan: I will follow up the polyp pathology and recommend repeat colonoscopy again in 3 years based upon the polyp histology. I would check PSA annually and if this does increase, would refer to urology. I would encourage fiber supplementation on a long-term daily maintenance basis.
== END 2017-10-19 12:12 | disposition home or self-care (01) ==
LOC: OUTP 09:12
PROVIDERS: Family Provider Family Medicine; PCP Family Medicine; Visit Provider Internal Medicine Gastroenterology
PROC: 0DJD8ZZ Inspection of Lower Intestinal Tract, Via Natural or Artificial Opening Endoscopic (ICD-10-PCS; CPT 45378; principal; 2017-10-19 10:30)
DX: Z12.11 Encounter for screening for malignant neoplasm of colon (principal); K63.5 Polyp of colon; K64.0 First degree hemorrhoids; Z86.010 Personal history of colon polyps
CPT/HCPCS: 45380; 82962

== ENCOUNTER → 2021-11-11 09:26 | Outpatient (CLI) | payer MEDICARE, SELFPAY ==
--- NOTE | 2021-11-11 09:32 | XR_ITS ---
FINAL REPORT CLINICAL HISTORY: hammertoes FINDINGS: RIGHT FOOT Three weight-bearing views of the right foot demonstrate no acute fracture or dislocation. The visualized joint spaces are normally aligned. There are small to moderate plantar spurs. The soft tissues are unremarkable. IMPRESSION: No acute bony abnormality. Reviewed, Interpreted and Dictated by Gomez Arenas MD Transcribed by Lawanda Sweeney Authenticated by Gomez Arenas MD on 11/11/2021 11:05:21 AM [facility]
--- NOTE | 2021-11-11 09:32 | XR_ITS ---
FINAL REPORT [facility] FINDINGS: LEFT FOOT Three weight-bearing views of the left foot demonstrate no acute fracture or dislocation. There is a small plantar spur. There are hypertrophic changes over the dorsal dorsal aspect of the intertarsal joints. There is a well corticated calcific density adjacent to the 1st tarsal metatarsal joint. IMPRESSION: Hypertrophic changes as described. Ossific density adjacent to the 1st tarsal metatarsal joint. Reviewed, Interpreted and Dictated by Gomez Arenas MD Transcribed by Lawanda Sweeney Authenticated by Gomez Arenas MD on 11/11/2021 11:05:24 AM [facility]
== END ==
PROVIDERS: PCP Family Medicine; Visit Provider Podiatrist
DX: M20.42 Other hammer toe(s) (acquired), left foot (principal); M20.41 Other hammer toe(s) (acquired), right foot
CPT/HCPCS: 73630

== ENCOUNTER → 2022-04-23 12:21 | Outpatient (CLI) | payer MEDICARE, SELFPAY ==
[2022-04-23 13:34] LABS: Strep Scrn Group A (Rapid) Negative (Negative)
[2022-04-23 14:17] LABS: Basophils # 0.1 K/mm3 (0-0.2); Basophils % 1.3 % (0.1-2.0); Eosinophils # 0.1 K/mm3 (0.0-0.4); Eosinophils % 0.6 % (0.1-12.0); Hematocrit 50.8 % (42.0-52.0); Hemoglobin 16.6 g/dL (14.1-18.0); Lymphocytes # 1.5 K/mm3 (0.7-4.5); Lymphocytes % 13.8 % (10-50); Mean Corpuscular HGB Conc 32.7 g/dL (31.8-35.4); Mean Corpuscular Hemoglobin 29.7 pg (27.0-31.2); Mean Corpuscular Volume 90.6 fl (80-94); Mean Platelet Volume 8.6 fl (7.4-10.4); Monocytes # 0.7 K/mm3 (0.1-1.0); Monocytes % 6.5 % (1.7-9.3); Neutrophils # 8.3 K/mm3 (1.8-7.8); Neutrophils % 77.8 % (37.0-80.0); Platelet Count 205 K/mm3 (142-424); Red Blood Count 5.61 M/mm3 (4.60-6.20); Red Cell Distribution Width 14.7 % (11.5-17.5); White Blood Count 10.7 K/mm3 (4.8-10.8)
== END ==
PROVIDERS: PCP Family Medicine; Visit Provider Nurse Practitioner Family
DX: Z20.822 Contact with and (suspected) exposure to COVID-19 (principal)
CPT/HCPCS: 36415; 85025; 87275; 87276; 87430; C9803; U0003; U0005

== ENCOUNTER 2023-10-08 10:53 | Outpatient (CLI) | payer MEDICARE, SELFPAY ==
--- NOTE | 2023-10-08 10:57 | CA_ITS ---
FINAL REPORT TECHNIQUE: Color Doppler, duplex Doppler and compression sonography of the left lower extremity deep venous systems was performed. CLINICAL HISTORY: PAIN,EDEMA LLE,NKI COMPARISON: None FINDINGS: The common femoral vein is patent. However there is thrombus in the left femoral, popliteal, posterior tibial, and gastrocnemius veins. These vessels are not compressible. IMPRESSION: Extensive deep venous thrombosis in the left leg to the level of the common femoral vein. These results were called by the claims technician to Dr. Lorenzana's office 10/08/2023. Reviewed, Interpreted and Dictated by aNren Gifford III, MD Transcribed by Jackie Avila Authenticated and [facility]
== END 2023-10-08 23:59 ==
LOC: RT 10:54
PROVIDERS: PCP Family Medicine; Visit Provider Family Medicine
DX: M79.605 Pain in left leg (principal)
CPT/HCPCS: 93971

== ENCOUNTER 2024-02-11 11:08 | Outpatient (CLI) | payer MEDICARE, SELFPAY ==
--- NOTE | 2024-02-11 11:17 | XR_ITS ---
FINAL REPORT CLINICAL HISTORY: PAIN IN RIGHT BUTTOCK COMPARISON: None FINDINGS: RIGHT HIP Two views of the right hip with an AP view of the pelvis demonstrate no acute fracture or dislocation. There is moderate degenerative change of the right hip with mild degenerative change of the left hip. The visualized bony structures are well aligned. Mild vascular calcifications are noted. No acute soft tissue abnormality is seen. IMPRESSION: Degenerative changes without acute bony abnormality. Reviewed, Interpreted and Dictated by Naren Gifford III, MD Transcribed by Maya Bright Authenticated and [facility]
== END 2024-02-11 23:59 | disposition home or self-care (01) ==
PROVIDERS: PCP Family Medicine; Visit Provider Physician Assistant
DX: M79.18 Myalgia, other site (principal)
CPT/HCPCS: 73502

== ENCOUNTER 2024-04-18 17:00 | Outpatient (RCR) | payer MEDICARE, SELFPAY ==
--- NOTE | 2024-02-24 10:05 | HMH.PTOPEV ---
PT Outpatient Evaluation Rehab PT Outpatient Evaluation Start: 02/24/24 07:59 Freq: Status: Active Protocol: Document 02/24/24 07:59 ANNIE (Rec: 02/24/24 10:05 ANNIE [id number]) E-signed By Lorena Nielsen, PT Outpatient Therapy Subjective History Subjective History Pt is a 68 y/o male who reports onset of R posterior hip pain 4-5 months ago. Pt denies known trauma or injury. Pt reports pain only occurs with prolonged driving and when sitting on a hard surface . Pt also reports minimal pain with traversing stairs. Pt reports crossing his R leg over his L and bending his R leg when sitting seems to diminish pain. Pt describes pain as a sharp, pulling sensation. Pt had a R hip xray on 02/11/24 with impression of Degenerative changes without acute bony abnormality. Pt reports history of sciatica attack of the RLE 3-4 years ago. Pt denies current distal LE symptoms, b/b dysfunction, or numbness/tingling. Pt reports he has been going to the chiropractor on/off for years and went yesterday for this issue with some noted improvements. Medical History: Hx LLE DVT 10/08/23, Type II Diabetes New diagnosis of cancer in past 12 No months? Chief Complaint Pain Symptom Type Sharp,Stabbing Symptoms Relieved By Rest/Positioning,Ice Symptoms Aggravated By Sitting,Twisting,Walking Current Functional Limitations Sitting,Stairs Symptom Description Intermittent Level of pain today (0-10) 0 Pain scale - at its best (0-10) 0 Pain scale - at its worst (0-10) 10 Lumbopelvic Eval Palapation tenderness bilateral lumbar spinal tenderness Yes buttock tenderness Yes: Glute max, piriformis Lumbar/Sacral Palpation Findings Tenderness Lumbar/Sacral Palpation Overall Comment 2/4 TTP Accessory Movement L-spine Vertebrae Accessory Movements Central P/A Donnellson,Right P/A that Elicit Symptoms Donnellson L4 right L5 right Range of Motion Lumbar Spine Active Flexion Range of 70 Motion (degrees) Lumbar Spine Active Extension Range of 15 Motion (degrees) Left Lumbar Spine Lateral Flexion Active 10 Range of Motion (degrees) Right Lumbar Spine Lateral Flexion 10 Active Range of Motion (degrees) Manual Muscle Test Bilateral Knee Extension Strength Grade 5 Normal Knee Flexion Strength Grade 5 Normal Hip Flexion Strength Grade 5 Normal Hip Abduction Strength Grade 4 Good Hip Adduction Strength Grade 5 Normal Hip External Rotation Strength Grade 4 Good Hip Extension Strength Grade 3+ Fair+ Ankle Dorsiflexion Strength Grade 5 Normal Altered Sensation Comment equal and intact to light touch sensation bilaterally Special Tests Hip Jarod (VINCE) Test Negative Left,Negative Right Hip Piriformis Test Negative Left,Negative Right Sciatic Nerve Tension Test Negative Left,Negative Right Unilateral Straight Leg Raise (Lasegue) Negative Left,Negative Right Test Miguel Test Positive Oswestry Index Section 1 Pain Intensity The pain is moderate and does not vary much Section 2 Personal Care (Washing,Dresing) change my way of washing or dressing in order to avoid pain Section 3 Lifting I can lift heavy weights without extra pain Section 4 Walking I have no pain when walking Section 5 Sitting Pain prevents me from sitting for more than one hour Section 6 Standing I can stand as long as I want without pain Section 7 Sleeping I get no pain in bed Section 8 Social Life My social life is normal and gives me no extra pain Section 9 Traveling I get extra pain while traveling, but it does not compel me to seek al Section 10 Changing Degreee of Pain My pain is neither getting better or worse Score and Risk Level Oswestry Sc 10 Oswestry Risk Level Mild Disability Outpatient Therapy Assessment Impairments Problems/Impairmments Palpation Tenderness,Impaired Range of Motion,Impaired Strength,Impaired Sitting, Impaired Driving,Impaired Stair Climbing,Subjective C/O Pain,Impaired Self Care/Self Management Prognosis Rehab Potential Good Clinical Impression Consistent with Diagnosis Yes Consistent with LBP with referred pain Short Term Goals Number of Weeks 3 Decrease Subjective C/O Pain Yes: Improve pain at worst to 6/10 to improve overall QOL Improve Self Care/Self Management Yes Patient to be Ind w/ HEP Yes Senior Care Goals Number of Weeks 6 Decreased Palpation Tenderness Yes: 0-1/4 TTP of glute mm Increase Range of Motion Yes: Improve lumbar AROM to WFL Increase Strength Yes: Improve hip/core strength to 4-4+/5 grossly to assist with function Increase Ability to Drive/Ride in Car Yes: report ability to drive care with pain 4/10 or less Improve Ability to Climb Stairs Yes: 1 flight reciprocally w pain 4/10 or less to assist w community navigation Improve Oswestry Score Yes Decrease Subjective C/O Pain Yes: Improve pain at worst to 4/10 or less to improve overall QOL Outpatient Therapy Plan of Care Treatment Plan May Include Therapeutic Exercise Including Home Yes Exercise Program Manual Therapy Techniques Yes Neuromuscular Re-education Yes Therapeutic Activities to Return to Yes Previous Functional/Work Level ADL/Self Care Education Yes Mechanical Traction Yes Dry Needling Yes Thermal Modalities Yes Electrical Stimulation Yes Ultrasound/Phonophoresis Yes Iontophoresis Yes Massage Yes Group Therapy for Medicare Yes Eval/Re-Eval Yes Frequency Times per week 2 Duration Number of Weeks 4-6 Addendums This patient is a candidate for social No or vocational rehab? Patient/Guardian verbally acknowledges Yes understanding of treatment program and consents to further treatment? Patient/Guardian verbally acknowledges Yes understanding of diagnosis, prognosis and goals for treatment? Eval Complexity PT Charges 06824 - Low Complexity Shoulder/Elbow Eval Shoulder Objective Measurements Elbow Objective Measurements PHYSICIAN CERTIFICATION: I certify the specified therapy services for Mervin Khanhsparkle Cha are required, authorized, and reviewed every 30 days.
--- NOTE | 2024-03-28 10:17 | HMH.RHREAS ---
Rehab Reassessment Rehab OP Re-assessment Start: 02/24/24 07:59 Freq: Status: Active Protocol: Document 03/28/24 07:58 ZACKMINNA (Rec: 03/28/24 10:17 ANNIE [id number]) E-signed By Lorena Nielsen, PT Oswestry Index Section 1 Pain Intensity The pain comes and goes and is severe Section 2 Personal Care (Washing,Dresing) change my way of washing or dressing in order to avoid pain Section 3 Lifting I can lift heavy weights without extra pain Section 4 Walking I have no pain when walking Section 5 Sitting I avoid sitting because it increases my pain immediately Section 6 Standing I can stand as long as I want without pain Section 7 Sleeping I get no pain in bed Section 8 Social Life My social life is normal and gives me no extra pain Section 9 Traveling I get extra pain while traveling, but it does not compel me to seek al Section 10 Changing Degreee of Pain My pain seems to be getting better, but improvement is slow Score and Risk Level Oswestry Sc 13 Oswestry Risk Level Mild Disability Rehab Re-assessment Subjective Subjective Pt reports he has not attended PT in 18 days due to 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 Pt reports overall he feels 60-70 % improved since starting PT. Pt reports he is able to sit longer with less pain of the right gluteal region. Pt reports pain continues to be localized to the posterior right hip, denies distal LE symptoms or numbness/tingling. Pt reports pain at worst as 7 -8/10 on VAS with sitting on a hard surface or driving for 10-15 minutes and ascending stairs. Objective Objective Notes Palpation: 3/4 TTP of ischial tuberosity and glute max, piriformis mm Lumbar AROM: flex 65, ext 20, LF 15 R hip AROM: IR/ER 45 degrees RLE MMT: hip flex 5/5, hip abd 4/5, hip add 5/5, hip ER 4+/5 , hip extension 3+/5, knee ext 5/5, knee flex 5/5 Assessment Progress Assessment Progressing as Expected Assessment Notes Pt has attended 5 PT visits since his initial evaluation on 02/24/24. Pt reported improved symptoms following dry needling but then was unable to attend PT in 18 days due to work related issues. Pt reports continued severe right hip pain localized to the right ischial tuberosity with prolonged sitting, driving and stair climbing. Pt demonstrates signs/symptoms of ischial tuberosity bursitis with concurrent gluteus kelvin weakness. Overall, the pt would continue to benefit from skilled PT to further improve subjective report of pain, lumbar mobility, LE strength and functional activity tolerance to assist with return to PLOF. Patient goals met ST/3 Goals Not Met p! at worst, LTG Revised Goals n/a Plan Plan Continue initial POC Frequency of Therapy 2x/week Duration of therapy 4 more weeks Time and Billing Re-Eval Time 15 Re-Eval Billing Units 1 PHYSICIAN CERTIFICATION: I certify the specified therapy services for Mervin Khanh Cha are required, authorized, and reviewed every 30 days.
== END 2024-04-18 23:59 | disposition home or self-care (01) ==
LOC: PT 17:00
PROVIDERS: Visit Provider Physician Assistant
DX: M54.31 Sciatica, right side (principal)
CPT/HCPCS: 20560; 20561; 97010; 97014; 97035; 97110; 97140; 97163; 97164; G0283

== ENCOUNTER 2024-05-20 16:55 | Outpatient (CLI) | payer MEDICARE, SELFPAY ==
--- NOTE | 2024-05-20 16:55 | MR_ITS ---
PROCEDURE INFORMATION: Exam: MR Lumbar Spine Without Contrast Exam date and time: 05/20/2024 5:08 PM Age: 68 years old Clinical indication: Low back pain; Additional info: Lumbar spine pain. Right hip pain TECHNIQUE: Imaging protocol: Magnetic resonance imaging of the lumbar spine without contrast. COMPARISON: ABDPELWO CT abdomen pelvis wo con 09/18/2017 9:43 AM FINDINGS: Bones/joints: Vertebral body heights, alignment and marrow signal are within normal limits. Spondylosis is noted with disc bulging, facet arthropathy and ligamentous thickening. Spinal cord: Visualized cord, conus medullaris and cauda equina are unremarkable without compression. L1-L2: No significant disc bulge or herniation. No severe spinal canal stenosis. No significant neural foraminal narrowing. L2-L3: At L2-L3 there is mild disc bulging and facet arthropathy causing mild canal and neural foraminal stenosis. L3-L4: At L3-L4 there is no significant canal narrowing and mild neural foraminal narrowing. L4-L5: At L4-L5 there is a broad-based disc bulge with facet arthropathy causing mild canal and moderate neural foraminal narrowing. L5-S1: At L5-S1 there is no significant canal narrowing and mild neural foraminal stenosis. Soft tissues: Unremarkable. IMPRESSION: Mild lumbar spondylosis.
== END 2024-05-20 23:59 | disposition home or self-care (01) ==
LOC: RAD 16:55
PROVIDERS: PCP Family Medicine; Visit Provider Physician Assistant
DX: M53.86 Other specified dorsopathies, lumbar region (principal); M54.9 Dorsalgia, unspecified
CPT/HCPCS: 72148